=== PATIENT | male | born 1960 | race Hispanic/Latino ===

== ENCOUNTER 2021-01-22 07:08 | Day surgery (SDC) | payer OTHER ==
[2021-01-21 16:16] VITALS: BMI 38.9
[2021-01-22 08:09] LABS: PTT 30.4 sec (22.9-36.1); Prothrombin Time 13.4 sec (12.0-14.7)
[2021-01-22 11:55] VITALS: BP 122/85; TEMP 98.2
[2021-01-27 11:15] LABS: Fungus Stain Final report (.)
== END 2021-01-22 11:02 | disposition home or self-care (01) ==
LOC: CT 07:08
PROVIDERS: ATTEND Internal Medicine Hematology & Oncology
PROC: 0BBJ3ZX Excision of Left Lower Lung Lobe, Percutaneous Approach, Diagnostic (ICD-10-PCS; principal; 2021-01-22)
DX: C78.02 Secondary malignant neoplasm of left lung (principal); C18.9 Malignant neoplasm of colon, unspecified; D63.0 Anemia in neoplastic disease; E11.9 Type 2 diabetes mellitus without complications; Z79.2 Long term (current) use of antibiotics; Z79.84 Long term (current) use of oral hypoglycemic drugs; Z79.899 Other long term (current) drug therapy; Z88.6 Allergy status to analgesic agent; Z90.49 Acquired absence of other specified parts of digestive tract; Z93.3 Colostomy status
CPT/HCPCS: 32408; 71045; 77012; 85610; 85730; 87102; 87116; 87206; 88305; 88333; 88341; 88342

== ENCOUNTER 2021-01-27 09:49 | Outpatient (CLI) | payer OTHER ==
[2021-01-27 12:09] LABS: Anion Gap 14 mmol/L (10-20); BUN (Urea Nitrogen) 15 mg/dL (8.4-25.7); Calc. Creatinine Clearance 0 mL/min (70-130); Calcium 9.6 mg/dL (7.8-10.44); Carbon Dioxide 22 mmol/L (22-29); Chloride 107 mmol/L (98-107); Glucose 91 mg/dL (70-105); Potassium 4.7 mmol/L (3.5-5.1); Sodium 138 mmol/L (136-145)
[2021-01-27 18:42] LABS: SARS-CoV-2 PCR by NAA Not Detected (NotDetected)
== END 2021-01-27 09:50 | disposition home or self-care (01) ==
LOC: LABBT 09:49
PROVIDERS: ATTEND Surgery
DX: Z01.812 Encounter for preprocedural laboratory examination (principal); C18.9 Malignant neoplasm of colon, unspecified; Z20.822 Contact with and (suspected) exposure to COVID-19
CPT/HCPCS: 80048; U0003; U0005

== ENCOUNTER 2021-03-05 19:27 | Emergency (ER) | payer OTHER ==
[2021-03-05 23:10] LABS: #Basophils 0.1 thou/uL (0.0-0.2); #Eosinphils 0.1 thou/uL (0.0-0.7); #Lymphocytes 1.6 thou/uL (1.20-3.40); #Monocytes 0.6 thou/uL (0.11-0.59); #Neutrophils 6.7 thou/uL (1.40-6.50); %Basophils 0.6 % (0.0-1.0); %Eosinophils 1.6 % (0.0-10.0); %Lymphocytes 17.3 % (21.0-51.0); %Monocytes 6.7 % (0.0-10.0); %Neutrophils 73.9 % (42.0-75.0); Mean Corpuscular HGB CONC 31.6 g/dL (32.0-36.0); Mean Corpuscular Hemoglobin 25.1 pg (27.0-31.0); Mean Corpuscular Volume 79.5 fL (78.0-98.0); Mean Platelet Volume 11.6 fL (7.4-10.4); Platelet Count 265 thou/uL (130-400); RBC Distribution Width 22.9 % (11.5-14.5); Red Blood Cell (RBC) Count 5.17 mill/uL (4.70-6.10)
[2021-03-05 23:26] LABS: ALT (SGPT) 60 U/L (8-55); AST (SGOT) 43 U/L (5-34); Albumin 4.4 g/dL (3.5-5.0); Alkaline Phosphatase 160 U/L (40-110); Anion Gap 17 mmol/L (10-20); BUN (Urea Nitrogen) 13 mg/dL (8.4-25.7); Bilirubin, Total 0.4 mg/dL (0.2-1.2); Calc. Creatinine Clearance 0 mL/min (70-130); Calcium 9.8 mg/dL (7.8-10.44); Carbon Dioxide 18 mmol/L (22-29); Chloride 106 mmol/L (98-107); Globulin 4.3 g/dL (2.4-3.5); Glucose 101 mg/dL (70-105); Potassium 4.9 mmol/L (3.5-5.1); Protein, Total 8.7 g/dL (6.0-8.3); Sodium 136 mmol/L (136-145)
[2021-03-06] MEDS ORDERED: Meclizine HCl 25 MG TAB ONE (00:49)
[2021-03-06] MEDS ORDERED: Ondansetron PF 4 MG/2 ML Vial ONE (00:49)
[2021-03-06 08:33] LABS: Clarity Clear (Clear); Glucose, Urine (Dipstick) Negative (Negative); Ketone, Urine Negative (Negative); Leukocyte Negative Leu/uL (Negative); Nitrite Negative (Negative); Protein, Urine (Dipstick) Negative (Neg-Trace); Specific Gravity, Urine 1.009 (1.002-1.036)
[2021-03-06 08:34] LABS: Bilirubin Negative (Negative); Blood, Urine Negative (Negative); RBC/HPF 0-3 HPF (0-3); Urobilinogen Normal mg/dL (Less than 2); WBC/HPF 0-3 HPF (0-3)
[2021-03-06 09:34] LABS: Troponin I Less than 0.010 ng/mL (< 0.028)
[2021-03-06 09:35] LABS: ALT (SGPT) 54 U/L (8-55); AST (SGOT) 42 U/L (5-34); Albumin 3.8 g/dL (3.5-5.0); Alkaline Phosphatase 137 U/L (40-110); Anion Gap 14 mmol/L (10-20); BUN (Urea Nitrogen) 12 mg/dL (8.4-25.7); Bilirubin, Total 0.4 mg/dL (0.2-1.2); CK (CPK) 38 U/L (30-200); Calc. Creatinine Clearance 0 mL/min (70-130); Calcium 8.7 mg/dL (7.8-10.44); Carbon Dioxide 19 mmol/L (22-29); Chloride 108 mmol/L (98-107); Globulin 3.9 g/dL (2.4-3.5); Glucose 92 mg/dL (70-105); Potassium 4.5 mmol/L (3.5-5.1); Protein, Total 7.7 g/dL (6.0-8.3); Sodium 136 mmol/L (136-145)
[2021-03-06 09:56] LABS: #Eosinphils 0.2 thou/uL (0.0-0.7); #Lymphocytes 1.4 thou/uL (1.20-3.40); #Monocytes 0.7 thou/uL (0.11-0.59); #Neutrophils 5.1 thou/uL (1.40-6.50); %Basophils 0.1 % (0.0-1.0); %Eosinophils 2.1 % (0.0-10.0); %Lymphocytes 18.7 % (21.0-51.0); %Monocytes 9.3 % (0.0-10.0); %Neutrophils 69.8 % (42.0-75.0); Mean Corpuscular HGB CONC 31.7 g/dL (32.0-36.0); Mean Corpuscular Hemoglobin 25.3 pg (27.0-31.0); Mean Corpuscular Volume 79.7 fL (78.0-98.0); Mean Platelet Volume 10.7 fL (7.4-10.4); Platelet Count 253 thou/uL (130-400); RBC Distribution Width 22.9 % (11.5-14.5); Red Blood Cell (RBC) Count 4.76 mill/uL (4.70-6.10); White Blood Cell (WBC) Count 7.3 thou/uL (4.8-10.8)
== END 2021-03-06 03:34 | disposition home or self-care (01) ==
LOC: ERS 19:27
DX: R42 Dizziness and giddiness (principal); R11.2 Nausea with vomiting, unspecified; H55.00 Unspecified nystagmus; E11.9 Type 2 diabetes mellitus without complications; D64.9 Anemia, unspecified; Z85.038 Personal history of other malignant neoplasm of large intestine
CPT/HCPCS: 36415; 70450; 80053; 82550; 83605; 83880; 85025; 93005; 94760; 96374; J2405

== ENCOUNTER → 2021-03-08 | Day surgery (SDC) | payer OTHER ==
[~2021-03-08] MED LIST: BEVACIZUMAB BVZR IV SCH; DEXTROSE 5% IVPB SCH; Dexamethasone 10 MG in Sodium Chloride 0.9% 50 ML IVPB SCH; FLUOROURACIL IVPB SCH; Ferumoxytol (NON ERSD) 510 MG in Sodium Chloride 0.9% 250 ML 150 ML IVPB SCH; LEUCOVORIN CALCIUM IVPB SCH; OXALIPLATIN IVPB SCH; Palonosetron HCl 0.25 MG in Sodium Chloride 0.9% 50 ML IVPB SCH; SODIUM CHLORIDE 0.9% IV SCH; SODIUM CHLORIDE 0.9% IVPB SCH; Sodium Chloride 0.9% 20 ML ONE; WATER IVPB SCH
[2021-03-08 11:59] VITALS: BP 125/77; TEMP 98.2
== END ==
LOC: ONC/OP 10:02
PROVIDERS: ATTEND Internal Medicine Hematology & Oncology
DX: Z51.11 Encounter for antineoplastic chemotherapy (principal); C18.0 Malignant neoplasm of cecum; D50.0 Iron deficiency anemia secondary to blood loss (chronic); Z88.5 Allergy status to narcotic agent; Z88.6 Allergy status to analgesic agent
CPT/HCPCS: 96367; 96375; 96413; 96415; 96416; 96417; J0640; J1100; J2469; J3490; J7050; J7070; J9190; J9263; Q0138

== ENCOUNTER → 2021-03-15 | Day surgery (SDC) | payer OTHER ==
[~2021-03-15] MED LIST changes: -BEVACIZUMAB BVZR IV SCH; -DEXTROSE 5% IVPB SCH; -Dexamethasone 10 MG in Sodium Chloride 0.9% 50 ML IVPB SCH; -FLUOROURACIL IVPB SCH; +Ferumoxytol (ERSD) 510 MG in Sodium Chloride 0.9% 250 ML 150 ML IV SCH; -Ferumoxytol (NON ERSD) 510 MG in Sodium Chloride 0.9% 250 ML 150 ML IVPB SCH; -LEUCOVORIN CALCIUM IVPB SCH; -OXALIPLATIN IVPB SCH; -Palonosetron HCl 0.25 MG in Sodium Chloride 0.9% 50 ML IVPB SCH; -SODIUM CHLORIDE 0.9% IV SCH; -SODIUM CHLORIDE 0.9% IVPB SCH; -WATER IVPB SCH
[2021-03-15 11:22] VITALS: BP 130/80
== END ==
LOC: ONC/OP 10:53
PROVIDERS: ATTEND Internal Medicine Hematology & Oncology
DX: D50.0 Iron deficiency anemia secondary to blood loss (chronic) (principal); C18.0 Malignant neoplasm of cecum; Z88.5 Allergy status to narcotic agent; Z88.6 Allergy status to analgesic agent
CPT/HCPCS: 96365; J1642; J7050; Q0139

== ENCOUNTER 2021-03-22 10:19 | Day surgery (SDC) | payer OTHER ==
[~2021-03-22 10:19] MED LIST changes: +BEVACIZUMAB BVZR IV SCH; +DEXTROSE 5% IVPB SCH; +Dexamethasone 10 MG in Sodium Chloride 0.9% 50 ML IVPB SCH; +FLUOROURACIL IVPB SCH; -Ferumoxytol (ERSD) 510 MG in Sodium Chloride 0.9% 250 ML 150 ML IV SCH; +Ferumoxytol (NON ERSD) 510 MG in Sodium Chloride 0.9% 250 ML 150 ML IVPB SCH; +LEUCOVORIN CALCIUM IVPB SCH; +PALONOSETRON HCL 0.05 MG/ML 5 ML VIAL IVP SCH; +Palonosetron HCl 0.25 MG in Sodium Chloride 0.9% 50 ML IVPB SCH; +SODIUM CHLORIDE 0.9% IV SCH; +WATER IVPB SCH
[2021-03-22 10:32] VITALS: BP 118/68
== END 2021-03-22 14:33 | disposition home or self-care (01) ==
LOC: ONC/OP 10:19
PROVIDERS: ATTEND Internal Medicine Hematology & Oncology
DX: Z51.11 Encounter for antineoplastic chemotherapy (principal); C18.0 Malignant neoplasm of cecum; D50.0 Iron deficiency anemia secondary to blood loss (chronic); Z88.6 Allergy status to analgesic agent
CPT/HCPCS: 96367; 96375; 96413; 96415; 96416; 96417; J0640; J1100; J2469; J3490; J7050; J7070; J9190; J9263; Q0138; Q5118

== ENCOUNTER 2021-04-05 11:05 | Day surgery (SDC) | payer OTHER ==
[~2021-04-05 11:05] MED LIST changes: -BEVACIZUMAB BVZR IV SCH; +BEVACIZUMAB BVZR IVPB SCH; -Dexamethasone 10 MG in Sodium Chloride 0.9% 50 ML IVPB SCH; -Ferumoxytol (NON ERSD) 510 MG in Sodium Chloride 0.9% 250 ML 150 ML IVPB SCH; -Palonosetron HCl 0.25 MG in Sodium Chloride 0.9% 50 ML IVPB SCH; -SODIUM CHLORIDE 0.9% IV SCH; +SODIUM CHLORIDE 0.9% IVPB SCH; -Sodium Chloride 0.9% 20 ML ONE
[2021-04-05] MEDS ORDERED: Sodium Chloride 0.9% 20 ML ONE (11:10)
[2021-04-05 11:45] VITALS: BP 117/70; TEMP 98.1
== END 2021-04-05 14:52 | disposition home or self-care (01) ==
LOC: ONC/OP 11:05
PROVIDERS: ATTEND Internal Medicine Hematology & Oncology
DX: Z51.11 Encounter for antineoplastic chemotherapy (principal); C18.0 Malignant neoplasm of cecum; D50.0 Iron deficiency anemia secondary to blood loss (chronic); Z88.5 Allergy status to narcotic agent; Z88.6 Allergy status to analgesic agent
CPT/HCPCS: 96367; 96375; 96413; 96415; 96416; 96417; J0640; J1100; J2469; J3490; J7070; J9190; J9263; Q5118

== ENCOUNTER 2021-04-19 10:41 | Day surgery (SDC) | payer OTHER ==
[~2021-04-19 10:41] MED LIST changes: +Palonosetron HCl 0.25 MG in Sodium Chloride 0.9% 50 ML IVPB SCH
[2021-04-19] MEDS ORDERED: Sodium Chloride 0.9% 20 ML ONE (10:56)
[2021-04-19 11:28] VITALS: BP 112/72; TEMP 98.4
== END 2021-04-19 16:06 | disposition home or self-care (01) ==
LOC: ONC/OP 10:41
PROVIDERS: ATTEND Internal Medicine Hematology & Oncology
DX: Z51.11 Encounter for antineoplastic chemotherapy (principal); C18.0 Malignant neoplasm of cecum; D50.0 Iron deficiency anemia secondary to blood loss (chronic); Z88.5 Allergy status to narcotic agent; Z88.6 Allergy status to analgesic agent
CPT/HCPCS: 96367; 96375; 96413; 96415; 96416; 96417; J0640; J1100; J2469; J3490; J7070; J9190; J9263; Q5118

== ENCOUNTER 2021-05-03 09:39 | Day surgery (SDC) | payer OTHER ==
[~2021-05-03 09:39] MED LIST changes: +OXALIPLATIN IVPB SCH; +Sodium Chloride 0.9% 20 ML ONE
[2021-05-03 10:15] VITALS: BP 103/66
== END 2021-05-03 14:18 | disposition home or self-care (01) ==
LOC: ONC/OP 09:39
PROVIDERS: ATTEND Internal Medicine Hematology & Oncology
DX: Z51.11 Encounter for antineoplastic chemotherapy (principal); C18.0 Malignant neoplasm of cecum; D50.0 Iron deficiency anemia secondary to blood loss (chronic); Z88.5 Allergy status to narcotic agent; Z88.6 Allergy status to analgesic agent
CPT/HCPCS: 96367; 96375; 96413; 96415; 96416; 96417; J0640; J1100; J2469; J3490; J7070; J9190; J9263; Q5118

== ENCOUNTER 2021-05-07 12:05 | Emergency (ER) | payer OTHER ==
[2021-05-07] MEDS ORDERED: Iopamidol-370 76% 500 ML 1 ML ONE (12:45)
[2021-05-07] MEDS ORDERED: Ondansetron PF 4 MG/2 ML Vial ONE (12:53)
[2021-05-07 13:30] LABS: Hemoglobin 14.7 g/dL (14.0-18.0); Mean Corpuscular HGB CONC 34.9 g/dL (32.0-36.0); Mean Corpuscular Hemoglobin 32.3 pg (27.0-31.0); Mean Corpuscular Volume 92.5 fL (78.0-98.0); Mean Platelet Volume 8.6 fL (7.4-10.4); Platelet Count 136 thou/uL (130-400); RBC Distribution Width 22.9 % (11.5-14.5); Red Blood Cell (RBC) Count 4.55 mill/uL (4.70-6.10); White Blood Cell (WBC) Count 4.2 thou/uL (4.8-10.8)
[2021-05-07 13:45] LABS: #Eosinphils 0.1 thou/uL (0.0-0.7); #Lymphocytes 0.7 thou/uL (1.20-3.40); #Monocytes 0.2 thou/uL (0.11-0.59); #Neutrophils 3.3 thou/uL (1.40-6.50); %Basophils 0.3 % (0.0-1.0); %Lymphocytes 16.9 % (21.0-51.0); %Monocytes 4.1 % (0.0-10.0); %Neutrophils 76.7 % (42.0-75.0)
[2021-05-07 13:48] LABS: ALT (SGPT) 114 U/L (8-55); AST (SGOT) 60 U/L (5-34); Alkaline Phosphatase 156 U/L (40-110); Anion Gap 12 mmol/L (10-20); BUN (Urea Nitrogen) 26 mg/dL (8.4-25.7); Calc. Creatinine Clearance 0 mL/min (70-130); Calcium 9.5 mg/dL (7.8-10.44); Carbon Dioxide 17 mmol/L (22-29); Chloride 106 mmol/L (98-107); Globulin 4.1 g/dL (2.4-3.5); Glucose 125 mg/dL (70-105); Lipase 58 U/L (8-78); Magnesium 2.1 mg/dL (1.6-2.6); Potassium 4.7 mmol/L (3.5-5.1); Protein, Total 8.1 g/dL (6.0-8.3); Sodium 130 mmol/L (136-145)
[2021-05-07 13:50] LABS: Anisocytosis SLIGHT = 6-15 cells (100X) (0-5/hpf); MDiff Complete? YES; Platelet Morphology Comment Appears Adequate
[2021-05-07] MEDS ORDERED: Morphine 4 MG/ML VIAL ONE (14:00)
[2021-05-07 15:06] LABS: Bilirubin Negative (Negative); Blood, Urine Negative (Negative); Clarity Clear (Clear); Glucose, Urine (Dipstick) Normal (Negative); Ketone, Urine Negative (Negative); Leukocyte Negative Leu/uL (Negative); Nitrite Negative (Negative); Protein, Urine (Dipstick) 10 mg/dL (Neg-Trace); Specific Gravity, Urine 1.044 (1.002-1.036); Urobilinogen Normal mg/dL (Less than 2)
== END 2021-05-07 15:56 | disposition home or self-care (01) ==
LOC: ERS 12:05
DX: R11.2 Nausea with vomiting, unspecified (principal); R10.84 Generalized abdominal pain; E11.9 Type 2 diabetes mellitus without complications; C78.00 Secondary malignant neoplasm of unspecified lung
CPT/HCPCS: 36415; 74177; 80053; 81003; 82274; 83690; 83735; 85025; 86850; 86900; 86901; 93005; 96374; J2270; J2405; Q9967

== ENCOUNTER 2021-05-25 11:39 | Day surgery (SDC) | payer OTHER ==
[~2021-05-25 11:39] MED LIST changes: -OXALIPLATIN IVPB SCH; -Palonosetron HCl 0.25 MG in Sodium Chloride 0.9% 50 ML IVPB SCH; -Sodium Chloride 0.9% 20 ML ONE
[2021-05-25] MEDS ORDERED: Sodium Chloride 0.9% 10 ML ONE (12:04)
[2021-05-25] MEDS ORDERED: PALONOSETRON HCL 0.05 MG/ML 5 ML VIAL ONE (12:04)
[2021-05-25 12:21] VITALS: BP 122/71; TEMP 98.5
== END 2021-05-25 13:51 | disposition home or self-care (01) ==
LOC: ONC/OP 11:39
PROVIDERS: ATTEND Internal Medicine Hematology & Oncology
DX: Z51.11 Encounter for antineoplastic chemotherapy (principal); C18.0 Malignant neoplasm of cecum; D50.0 Iron deficiency anemia secondary to blood loss (chronic); Z88.6 Allergy status to analgesic agent
CPT/HCPCS: 96367; 96375; 96413; 96416; 96417; J0640; J1100; J2469; J3490; J9190; Q5118

== ENCOUNTER 2021-06-15 10:30 | Day surgery (SDC) | payer OTHER ==
[~2021-06-15 10:30] MED LIST changes: -PALONOSETRON HCL 0.05 MG/ML 5 ML VIAL IVP SCH; +Palonosetron HCl 0.25 MG in Sodium Chloride 0.9% 50 ML IVPB SCH
[2021-06-15] MEDS ORDERED: PALONOSETRON HCL 0.05 MG/ML 5 ML VIAL ONE (11:15)
[2021-06-15] MEDS ORDERED: Sodium Chloride 0.9% 10 ML ONE (11:15)
[2021-06-15 12:12] VITALS: BP 123/69
== END 2021-06-15 13:05 | disposition home or self-care (01) ==
LOC: ONC/OP 10:30
PROVIDERS: ATTEND Internal Medicine Hematology & Oncology
DX: Z51.11 Encounter for antineoplastic chemotherapy (principal); C18.0 Malignant neoplasm of cecum; D50.0 Iron deficiency anemia secondary to blood loss (chronic); Z88.5 Allergy status to narcotic agent; Z88.6 Allergy status to analgesic agent
CPT/HCPCS: 96367; 96375; 96413; 96416; 96417; J0640; J1100; J2469; J3490; J9190; Q5118

== ENCOUNTER 2022-01-05 11:23 | Outpatient (CLI) | payer OTHER ==
[2022-01-05] MEDS ORDERED: Iopamidol 370 76% 100 ML VIAL ONE (14:17)
== END 2022-01-05 11:24 | disposition home or self-care (01) ==
LOC: BICCT 11:23
PROVIDERS: ATTEND Internal Medicine Hematology & Oncology
DX: C80.1 Malignant (primary) neoplasm, unspecified (principal); C78.5 Secondary malignant neoplasm of large intestine and rectum; D50.0 Iron deficiency anemia secondary to blood loss (chronic); R91.1 Solitary pulmonary nodule
CPT/HCPCS: 71260; 74177; 82565; Q9967

== ENCOUNTER 2022-02-22 12:30 | Outpatient (CLI) | payer OTHER | END 2022-02-22 12:31 | disposition home or self-care (01) | LOC: ULT 12:30 | PROVIDERS: ATTEND Internal Medicine Hematology & Oncology | DX: Z51.11 Encounter for antineoplastic chemotherapy (principal); C18.0 Malignant neoplasm of cecum; I08.1 Rheumatic disorders of both mitral and tricuspid valves | CPT/HCPCS: 93306 ==

== ENCOUNTER 2022-04-17 01:16 | Emergency (ER) | payer OTHER ==
[2022-04-17 02:20] LABS: #Eosinphils 0.2 thou/uL (0.0-0.7); #Lymphocytes 1.3 thou/uL (1.20-3.40); #Monocytes 0.6 thou/uL (0.11-0.59); #Neutrophils 2.9 thou/uL (1.40-6.50); %Basophils 0.3 % (0.0-1.0); %Eosinophils 4.6 % (0.0-10.0); %Lymphocytes 25.1 % (21.0-51.0); %Monocytes 12.2 % (0.0-10.0); %Neutrophils 57.8 % (42.0-75.0); Hemoglobin 11.9 g/dL (14.0-18.0); Mean Corpuscular HGB CONC 34.1 g/dL (32.0-36.0); Mean Platelet Volume 8.3 fL (7.4-10.4); Platelet Count 162 thou/uL (130-400); RBC Distribution Width 15.4 % (11.5-14.5); Red Blood Cell (RBC) Count 3.41 mill/uL (4.70-6.10); White Blood Cell (WBC) Count 5.1 thou/uL (4.8-10.8)
[2022-04-17] MEDS ORDERED: Morphine 4 MG/ML VIAL ONE (02:36)
[2022-04-17] MEDS ORDERED: Ondansetron PF 4 MG/2 ML Vial ONE (02:36)
[2022-04-17 02:48] LABS: ALT (SGPT) 61 U/L (8-55); AST (SGOT) 60 U/L (5-34); Albumin 3.4 g/dL (3.4-4.8); Alkaline Phosphatase 101 U/L (40-110); Anion Gap 10 mmol/L (10-20); BUN (Urea Nitrogen) 10 mg/dL (8.4-25.7); Bilirubin, Total 0.8 mg/dL (0.2-1.2); Calc. Creatinine Clearance 0 mL/min (70-130); Carbon Dioxide 25 mmol/L (23-31); Chloride 106 mmol/L (98-107); Estimated GFR 100; Globulin 4.2 g/dL (2.4-3.5); Glucose 159 mg/dL (80-115); Lipase 71 U/L (8-78); Potassium 3.5 mmol/L (3.5-5.1); Protein, Total 7.6 g/dL (5.8-8.1); Sodium 137 mmol/L (136-145)
[2022-04-17 03:24] LABS: Bilirubin Negative (Negative); Blood, Urine Negative (Negative); Clarity Clear (Clear); Glucose, Urine (Dipstick) Normal (Negative); Ketone, Urine Negative (Negative); Leukocyte Negative Leu/uL (Negative); Nitrite Negative (Negative); Protein, Urine (Dipstick) 10 mg/dL (Neg-Trace); Specific Gravity, Urine 1.023 (1.002-1.036); Urobilinogen Normal mg/dL (Less than 2); pH, Urine 7.5 (5.0-9.0)
[2022-04-17] MEDS ORDERED: Iopamidol-370 76% 500 ML 1 ML ONE (13:48)
== END 2022-04-17 05:50 | disposition home or self-care (01) ==
LOC: ERS 01:16
DX: K43.9 Ventral hernia without obstruction or gangrene (principal); C18.9 Malignant neoplasm of colon, unspecified
CPT/HCPCS: 36415; 71260; 74177; 80053; 81003; 83690; 85025; 96374; 96375; J2270; J2405; Q9967

== ENCOUNTER 2022-05-06 19:15 | Emergency (ER) | payer OTHER ==
[2022-05-06 20:23] LABS: Hemoglobin 13.8 g/dL (14.0-18.0); Mean Corpuscular Hemoglobin 36.2 pg (27.0-31.0); PTT 38.6 sec (22.9-36.1); Prothrombin Time 13.2 sec (12.0-14.7); RBC Distribution Width 14.9 % (11.5-14.5); Red Blood Cell (RBC) Count 3.81 mill/uL (4.70-6.10); White Blood Cell (WBC) Count 4.5 10x3/uL (4.8-10.8)
[2022-05-06 20:33] LABS: ALT (SGPT) 46 U/L (8-55); AST (SGOT) 55 U/L (5-34); Albumin 3.6 g/dL (3.4-4.8); Alkaline Phosphatase 102 U/L (40-110); Anion Gap 16 mmol/L (10-20); BUN (Urea Nitrogen) 12 mg/dL (8.4-25.7); Bilirubin, Total 0.5 mg/dL (0.2-1.2); Calc. Creatinine Clearance 0 mL/min (70-130); Calcium 8.8 mg/dL (7.8-10.44); Carbon Dioxide 20 mmol/L (23-31); Chloride 106 mmol/L (98-107); Estimated GFR 98; Globulin 5.2 g/dL (2.4-3.5); Glucose 210 mg/dL (80-115); Potassium 4.2 mmol/L (3.5-5.1); Protein, Total 8.8 g/dL (5.8-8.1); Sodium 138 mmol/L (136-145)
[2022-05-06 20:34] LABS: #Eosinphils 0.2 thou/uL (0.0-0.7); #Lymphocytes 1.6 thou/uL (1.20-3.40); #Monocytes 0.5 thou/uL (0.11-0.59); #Neutrophils 2.1 thou/uL (1.40-6.50); %Basophils 0.4 % (0.0-1.0); %Eosinophils 5.4 % (0.0-10.0); %Monocytes 11.6 % (0.0-10.0); %Neutrophils 47.5 % (42.0-75.0); MDiff Complete? YES; Macrocytosis SLIGHT = 6-15 cells (100X) (0-5/hpf); Mean Platelet Volume 9.2 fL (7.4-10.4); Platelet Count 117 10x3/uL (130-400); Platelet Morphology Comment Appears Decreased
== END 2022-05-06 22:39 | disposition home or self-care (01) ==
LOC: ERS 19:15
DX: L76.22 Postprocedural hemorrhage of skin and subcutaneous tissue following other procedure (principal)
CPT/HCPCS: 36415; 80053; 85025; 85610; 85730; 99283

== ENCOUNTER 2022-05-07 01:40 | Emergency (ER) | payer OTHER | END 2022-05-07 02:41 | disposition home or self-care (01) | LOC: ERS 01:40 | DX: S31.109A Unspecified open wound of abdominal wall, unspecified quadrant without penetration into peritoneal cavity, initial encounter (principal) | CPT/HCPCS: 99283 ==

== ENCOUNTER 2024-04-22 11:51 | Emergency (ER) | payer OTHER ==
[2024-04-22 12:28] LABS: #Basophils Less than 0.03 10x3/uL (0.0-0.2); %Basophils 0.3 % (0.0-1.0); %Eosinophils 3.9 % (0.0-10.0); %Lymphocytes 26.2 % (21.0-51.0); %Neutrophils 60.1 % (42.0-75.0); Hematocrit 44.1 % (42.0-52.0); Hemoglobin 15.5 g/dL (14.0-18.0); Mean Corpuscular HGB CONC 35.1 g/dL (32.0-36.0); Mean Corpuscular Hemoglobin 33.6 pg (27.0-31.0); Mean Corpuscular Volume 95.7 fL (78.0-98.0); Mean Platelet Volume 10.8 fL (7.4-10.4); Platelet Count 157 10x3/uL (130-400); Red Blood Cell (RBC) Count 4.61 mill/uL (4.70-6.10)
[2024-04-22 12:37] LABS: ALT (SGPT) 56 U/L (8-55); AST (SGOT) 40 U/L (5-34); Albumin 3.8 g/dL (3.4-4.8); Alkaline Phosphatase 89 U/L (40-110); Anion Gap 16 mmol/L (10-20); BUN (Urea Nitrogen) 17 mg/dL (8.4-25.7); Bilirubin, Total 0.7 mg/dL (0.2-1.2); Calc. Creatinine Clearance 0 mL/min (70-130); Calcium 9.2 mg/dL (7.8-10.44); Carbon Dioxide 22 mmol/L (23-31); Chloride 105 mmol/L (98-107); Estimated GFR 96; Globulin 4.5 g/dL (2.4-3.5); Glucose 142 mg/dL (80-115); Lipase 34 U/L (8-78); Potassium 4.5 mmol/L (3.5-5.1); Protein, Total 8.3 g/dL (5.8-8.1); Sodium 138 mmol/L (136-145)
[2024-04-22] MEDS ORDERED: Iopamidol-370 76% 500 ML MDV (1 ML CHARGE) ONE (13:18)
[2024-04-22] MEDS ORDERED: fentaNYL 50 mcg/mL 1 mL Vial ONE (14:03)
[2024-04-22] MEDS ORDERED: HYDROcodone/Acetaminophen 10/325 mg Tablet ONE (14:30)
[2024-04-22 14:33] LABS: PTT 27.9 sec (22.9-36.1); Prothrombin Time 13.3 sec (12.0-14.7); Troponin I Less than 0.010 ng/mL (< 0.028)
== END 2024-04-22 16:43 | disposition home or self-care (01) ==
LOC: ERS 11:51
DX: G89.29 Other chronic pain (principal); R10.11 Right upper quadrant pain; E11.9 Type 2 diabetes mellitus without complications; E78.5 Hyperlipidemia, unspecified; C18.9 Malignant neoplasm of colon, unspecified; C78.00 Secondary malignant neoplasm of unspecified lung; C78.7 Secondary malignant neoplasm of liver and intrahepatic bile duct
CPT/HCPCS: 36415; 74177; 76705; 80053; 83605; 83690; 84484; 85025; 85610; 85730; J3010; Q9967

== ENCOUNTER 2024-07-02 17:47 | Emergency (ER) | payer OTHER ==
[2024-07-02 19:04] LABS: Prothrombin Time 12.7 sec (12.0-14.7)
[2024-07-02 19:09] LABS: Troponin I Less than 0.010 ng/mL (< 0.028)
[2024-07-02 19:10] LABS: ALT (SGPT) 55 U/L (8-55); AST (SGOT) 41 U/L (5-34); Albumin 3.7 g/dL (3.4-4.8); Alkaline Phosphatase 91 U/L (40-110); Anion Gap 14 mmol/L (10-20); BUN (Urea Nitrogen) 13 mg/dL (8.4-25.7); Bilirubin, Total 0.4 mg/dL (0.2-1.2); Calc. Creatinine Clearance 0 mL/min (70-130); Calcium 9.6 mg/dL (7.8-10.44); Carbon Dioxide 22 mmol/L (23-31); Chloride 103 mmol/L (98-107); Estimated GFR 101; Globulin 4.9 g/dL (2.4-3.5); Glucose 148 mg/dL (80-115); Lipase 34 U/L (8-78); Potassium 4.8 mmol/L (3.5-5.1); Protein, Total 8.6 g/dL (5.8-8.1); Sodium 134 mmol/L (136-145)
[2024-07-02 19:16] LABS: #Basophils Less than 0.03 10x3/uL (0.0-0.2); %Basophils 0.3 % (0.0-1.0); %Eosinophils 4.5 % (0.0-10.0); %Lymphocytes 27.8 % (21.0-51.0); %Neutrophils 59.1 % (42.0-75.0); Hematocrit 44.6 % (42.0-52.0); Hemoglobin 15.6 g/dL (14.0-18.0); Mean Corpuscular Hemoglobin 33.2 pg (27.0-31.0); Mean Corpuscular Volume 94.9 fL (78.0-98.0); Mean Platelet Volume 10.3 fL (7.4-10.4); Platelet Count 148 10x3/uL (130-400); RBC Distribution Width 12.7 % (11.5-14.5)
[2024-07-02] MEDS ORDERED: Morphine 2 MG/ML VIAL ONE (19:19)
[2024-07-02 19:41] LABS: PTT 22.4 sec (22.9-36.1)
== END 2024-07-02 21:30 | disposition home or self-care (01) ==
LOC: ERS 17:47
DX: C78.7 Secondary malignant neoplasm of liver and intrahepatic bile duct (principal); C78.02 Secondary malignant neoplasm of left lung; C18.9 Malignant neoplasm of colon, unspecified; Z55.6 Problems related to health literacy; E11.9 Type 2 diabetes mellitus without complications; Z79.84 Long term (current) use of oral hypoglycemic drugs
CPT/HCPCS: 36415; 71275; 74177; 80053; 83690; 84484; 85025; 85610; 85730; 93005; 96374; J2272

== ENCOUNTER 2024-12-17 09:06 | Outpatient (CLI) | payer OTHER ==
[2024-12-17 10:05] LABS: Estimated GFR - POC 95.0
[2024-12-17] MEDS ORDERED: Iopamidol 370 76% 100 ML VIAL ONE (10:12)
== END 2024-12-17 09:07 | disposition home or self-care (01) ==
LOC: CT 09:06
PROVIDERS: ATTEND Specialist
DX: C18.9 Malignant neoplasm of colon, unspecified (principal); R91.8 Other nonspecific abnormal finding of lung field; R16.0 Hepatomegaly, not elsewhere classified
CPT/HCPCS: 36415; 71270; 74178; 82565; Q9967

== ENCOUNTER 2025-03-24 09:15 | Outpatient (CLI) | payer OTHER ==
[2025-03-24] MEDS ORDERED: Iopamidol 370 76% 100 ML VIAL ONE (10:55)
== END 2025-03-24 09:16 | disposition home or self-care (01) ==
LOC: CT 09:15
PROVIDERS: ATTEND Radiology Radiation Oncology
DX: C78.00 Secondary malignant neoplasm of unspecified lung (principal); R91.8 Other nonspecific abnormal finding of lung field; R16.0 Hepatomegaly, not elsewhere classified; I25.10 Atherosclerotic heart disease of native coronary artery without angina pectoris; M85.80 Other specified disorders of bone density and structure, unspecified site
CPT/HCPCS: 71260; 74177; J1642; Q9967

== ENCOUNTER 2025-05-01 16:52 | Emergency (ER) | payer OTHER ==
[2025-05-01 21:21] LABS: #Basophils 0.03 10x3/uL (0.0-0.2); #Eosinophils 0.28 10x3/uL (0.0-0.7); #Monocytes 0.59 10x3/uL (0.11-0.59); #Neutrophils 4.82 10x3/uL (1.40-6.50); %Basophils 0.4 % (0.0-1.0); %Eosinophils 4.1 % (0.0-10.0); %Lymphocytes 14.9 % (21.0-51.0); %Monocytes 8.7 % (0.0-10.0); %Neutrophils 71.3 % (42.0-75.0); Hematocrit 42.9 % (42.0-52.0); Hemoglobin 14.3 g/dL (14.0-18.0); Mean Corpuscular Hemoglobin 31.2 pg (27.0-31.0); Mean Corpuscular Volume 93.5 fL (78.0-98.0); Platelet Count 182 10x3/uL (130-400); Red Blood Cell (RBC) Count 4.59 mill/uL (4.70-6.10); White Blood Cell (WBC) Count 6.77 10x3/uL (4.8-10.8)
[2025-05-01 21:33] LABS: INR-International Normal Ratio 1.1; PTT 29.5 sec (22.9-36.1); Prothrombin Time 14.0 sec (12.0-14.7)
[2025-05-01 21:34] LABS: D-Dimer Test 3.27 mcg/mL (0.27-0.43)
[2025-05-01 21:39] LABS: ALT (SGPT) 34 U/L (Less than 45); AST (SGOT) 36 U/L (11-34); Albumin 3.7 g/dL (3.1-4.5); Alkaline Phosphatase 100 U/L (40-110); Anion Gap 15 mmol/L (10-20); BUN (Urea Nitrogen) 19 mg/dL (8.4-25.7); Bilirubin, Total 0.5 mg/dL (0.3-1.2); Calc. Creatinine Clearance 0 mL/min (70-130); Calcium 9.0 mg/dL (7.8-10.44); Carbon Dioxide 25 mmol/L (23-31); Chloride 101 mmol/L (98-107); Globulin 4.3 g/dL (2.4-3.5); Glucose 166 mg/dL (80-115); Potassium 4.7 mmol/L (3.5-5.1); Sodium 136 mmol/L (136-145)
== END 2025-05-01 22:23 | disposition home or self-care (01) ==
LOC: ERS 16:52
DX: R04.2 Hemoptysis (principal); C78.7 Secondary malignant neoplasm of liver and intrahepatic bile duct; E11.9 Type 2 diabetes mellitus without complications
CPT/HCPCS: 71046; 80053; 83880; 84484; 85025; 85379; 85610; 85730; 93005; 96374; J3010